=== PATIENT | male | born 1940 | race Caucasian/White ===

== ENCOUNTER → 2023-05-04 09:20 | Outpatient (REF) | payer MEDICARE, SELFPAY ==
[2023-05-04 10:18] LABS: Blood Urea Nitrogen 22 mg/dl (9-20); Calcium 8.8 mg/dl (8.4-10.2); Carbon Dioxide 27 mmol/L (22-30); Chloride 102 mmol/L (98-107); Glucose 189 mg/dl (70-99); Potassium 4.1 mmol/L (3.5-5.1); Sodium 135 mmol/L (135-145); eGFR > 60.00
[2023-05-04 10:35] LABS: Free T4 1.12 ng/dl (0.78-2.19)
[2023-05-04 10:48] LABS: TSH 4.02 uIU/ml (0.47-4.68)
== END ==
LOC: OLABN 09:20
PROVIDERS: ATTENDING PHYSICIAN Internal Medicine Geriatric Medicine
DX: E11.42 Type 2 diabetes mellitus with diabetic polyneuropathy (principal); E03.9 Hypothyroidism, unspecified; E55.9 Vitamin D deficiency, unspecified
CPT/HCPCS: 36415; 80048; 84439; 84443

== ENCOUNTER → 2023-08-03 12:07 | Outpatient (REF) | payer MEDICARE, SELFPAY ==
[2023-08-03 13:33] LABS: Blood Urea Nitrogen 30 mg/dl (9-20); Calcium 9.4 mg/dl (8.4-10.2); Carbon Dioxide 23 mmol/L (22-30); Chloride 105 mmol/L (98-107); Glucose 184 mg/dl (70-99); Potassium 4.8 mmol/L (3.5-5.1); Sodium 137 mmol/L (135-145); eGFR > 60.00
[2023-08-03 13:40] LABS: Vitamin D, 25-OH*** 30.1 ng/mL (30-80)
[2023-08-03 14:40] LABS: Glycohemoglobin (HgbA1c) 8.6 % (4.0-5.6)
== END ==
LOC: OLABN 12:07
PROVIDERS: ATTENDING PHYSICIAN Internal Medicine Geriatric Medicine
DX: E11.42 Type 2 diabetes mellitus with diabetic polyneuropathy (principal); E55.9 Vitamin D deficiency, unspecified
CPT/HCPCS: 36415; 80048; 82306; 83036

== ENCOUNTER → 2023-10-29 08:58 | Outpatient (REF) | payer MEDICARE, OTHER, SELFPAY | LOC: RST 08:58 | PROVIDERS: ATTENDING PHYSICIAN Nurse Practitioner Adult Health; FAMILY PHYSICIAN Internal Medicine Geriatric Medicine | DX: R13.10 Dysphagia, unspecified (principal) | CPT/HCPCS: 74230; 92611 ==

== ENCOUNTER → 2023-11-02 11:18 | Outpatient (REF) | payer MEDICARE, OTHER, SELFPAY ==
[2023-11-02 12:11] LABS: Blood Urea Nitrogen 31 mg/dl (9-20); Calcium 9.2 mg/dl (8.4-10.2); Carbon Dioxide 26 mmol/L (22-30); Chloride 99 mmol/L (98-107); Glucose 198 mg/dl (70-99); Potassium 4.6 mmol/L (3.5-5.1); Sodium 135 mmol/L (135-145); eGFR 49.87
[2023-11-02 12:29] LABS: Free T4 0.96 ng/dl (0.78-2.19)
[2023-11-02 12:43] LABS: TSH 7.07 uIU/ml (0.47-4.68)
[2023-11-02 16:06] LABS: Glycohemoglobin (HgbA1c) 8.1 % (4.0-5.6)
== END ==
LOC: OLABN 11:18
PROVIDERS: ATTENDING PHYSICIAN Internal Medicine Geriatric Medicine
DX: E11.42 Type 2 diabetes mellitus with diabetic polyneuropathy (principal); E03.9 Hypothyroidism, unspecified
CPT/HCPCS: 80048; 83036; 84439; 84443

== ENCOUNTER → 2023-11-05 09:58 | Outpatient (REF) | payer MEDICARE, OTHER, SELFPAY ==
[2023-11-05 12:40] LABS: Free T4 1.02 ng/dl (0.78-2.19)
[2023-11-05 12:54] LABS: TSH 9.74 uIU/ml (0.47-4.68)
== END ==
LOC: OLABN 09:58
PROVIDERS: ATTENDING PHYSICIAN Internal Medicine Geriatric Medicine
DX: E03.9 Hypothyroidism, unspecified (principal)
CPT/HCPCS: 36415; 84439; 84443

== ENCOUNTER → 2024-02-01 11:08 | Outpatient (REF) | payer MEDICARE, OTHER, SELFPAY ==
[2024-02-01 12:55] LABS: Blood Urea Nitrogen 28 mg/dl (9-20); Calcium 9.2 mg/dl (8.4-10.2); Carbon Dioxide 30 mmol/L (22-30); Chloride 97 mmol/L (98-107); Glucose 240 mg/dl (70-99); Potassium 4.8 mmol/L (3.5-5.1); Sodium 138 mmol/L (135-145); eGFR 49.87
[2024-02-01 13:15] LABS: Free T4 1.26 ng/dl (0.78-2.19)
[2024-02-01 13:28] LABS: TSH 6.04 uIU/ml (0.47-4.68)
[2024-02-01 14:38] LABS: Glycohemoglobin (HgbA1c) 8.9 % (4.0-5.6)
== END ==
LOC: OLABN 11:08
PROVIDERS: ATTENDING PHYSICIAN Internal Medicine Geriatric Medicine
DX: E03.9 Hypothyroidism, unspecified (principal); E11.9 Type 2 diabetes mellitus without complications
CPT/HCPCS: 36415; 80048; 83036; 84439; 84443

== ENCOUNTER → 2024-02-10 15:12 | Outpatient (REF) | payer MEDICARE, OTHER, SELFPAY ==
[2024-02-10 19:20] LABS: Urine Albumin 1+ (Neg - Trace); Urine Bilirubin Negative (Negative); Urine Character Clear (Clear); Urine Color Yellow; Urine Glucose Trace (Negative); Urine Ketone Negative (Negative); Urine Leukocyte Trace (Negative); Urine Nitrite Negative (Negative); Urine Occult Blood Trace (Negative); Urine Urobilinogen Negative (Neg - 1+)
[2024-02-10 19:26] LABS: Urine Red Blood Cell 0-2 /HPF (0-2)
[2024-02-10 19:27] LABS: Urine Bacteria Few (Negative); Urine White Cell 70-80 /HPF (0-5)
== END ==
LOC: OLABN 15:12
PROVIDERS: ATTENDING PHYSICIAN Internal Medicine Geriatric Medicine
DX: R82.90 Unspecified abnormal findings in urine (principal)
CPT/HCPCS: 81003; 81015; 87077; 87086

== ENCOUNTER → 2024-03-17 10:17 | Outpatient (REF) | payer MEDICARE, OTHER, SELFPAY ==
[2024-03-17 11:56] LABS: Free T4 1.17 ng/dl (0.78-2.19)
[2024-03-17 12:09] LABS: TSH 7.85 uIU/ml (0.47-4.68)
== END ==
LOC: OLABN 10:17
PROVIDERS: ATTENDING PHYSICIAN Internal Medicine Geriatric Medicine
DX: E03.9 Hypothyroidism, unspecified (principal)
CPT/HCPCS: 36415; 84439; 84443

== ENCOUNTER → 2024-03-26 07:34 | Outpatient (REF) | payer MEDICARE, OTHER, SELFPAY | LOC: RAD 07:34 | PROVIDERS: ATTENDING PHYSICIAN Surgery Vascular Surgery; FAMILY PHYSICIAN Internal Medicine Geriatric Medicine | DX: R60.0 Localized edema (principal) | CPT/HCPCS: 93922; 93925 ==

== ENCOUNTER → 2024-05-02 09:40 | Outpatient (REF) | payer MEDICARE, OTHER, SELFPAY ==
[2024-05-02 10:44] LABS: ALT (SGPT) 17 U/L (0-50); AST (SGOT) 19 U/L (17-59); Alkaline Phosphatase 136 U/L (38-126); Blood Urea Nitrogen 28 mg/dl (9-20); Calcium 9.2 mg/dl (8.4-10.2); Carbon Dioxide 28 mmol/L (22-30); Chloride 98 mmol/L (98-107); Direct Bilirubin 0.3 mg/dl (0.0-0.4); Glucose 176 mg/dl (70-99); HDL Cholesterol 36 mg/dl; LDL Cholesterol, Calculated 98 mg/dl; Potassium 4.4 mmol/L (3.5-5.1); Sodium 136 mmol/L (135-145); Total Bilirubin 0.7 mg/dl (0.2-1.3); Total Cholesterol 183 mg/dl (50-199); Triglyceride 247 mg/dl (10-149); Very Low Density Lipoprotein 49 mg/dl (0-30); eGFR 49.56
[2024-05-02 10:58] LABS: Vitamin D, 25-OH*** 29.6 ng/mL (30-80)
[2024-05-03 09:22] LABS: Glycohemoglobin (HgbA1c) 9.4 % (4.0-5.6)
== END ==
LOC: OLABN 09:40
PROVIDERS: ATTENDING PHYSICIAN Internal Medicine Geriatric Medicine
DX: E78.5 Hyperlipidemia, unspecified (principal); E03.9 Hypothyroidism, unspecified; E55.9 Vitamin D deficiency, unspecified; E11.9 Type 2 diabetes mellitus without complications
CPT/HCPCS: 36415; 80053; 80061; 82248; 82306; 83036

== ENCOUNTER → 2024-06-15 10:10 | Outpatient (REF) | payer MEDICARE, OTHER, SELFPAY ==
[2024-06-15 11:43] LABS: Free T4 1.31 ng/dl (0.78-2.19)
[2024-06-15 11:57] LABS: TSH 6.21 uIU/ml (0.47-4.68)
== END ==
LOC: OLABN 10:10
PROVIDERS: ATTENDING PHYSICIAN Internal Medicine Geriatric Medicine
DX: E03.9 Hypothyroidism, unspecified (principal)
CPT/HCPCS: 36415; 84439; 84443

== ENCOUNTER → 2024-08-01 09:58 | Outpatient (REF) | payer MEDICARE, OTHER, SELFPAY ==
[2024-08-01 10:45] LABS: Blood Urea Nitrogen 34 mg/dl (9-20); Calcium 8.9 mg/dl (8.4-10.2); Carbon Dioxide 25 mmol/L (22-30); Chloride 107 mmol/L (98-107); Glucose 193 mg/dl (70-99); Potassium 4.8 mmol/L (3.5-5.1); Sodium 139 mmol/L (135-145); eGFR 45.62
[2024-08-01 12:11] LABS: Glycohemoglobin (HgbA1c) 7.2 % (4.0-5.6)
== END ==
LOC: OLABN 09:58
PROVIDERS: ATTENDING PHYSICIAN Internal Medicine Geriatric Medicine
DX: E11.42 Type 2 diabetes mellitus with diabetic polyneuropathy (principal)
CPT/HCPCS: 36415; 80048; 83036

== ENCOUNTER → 2024-09-07 09:42 | Outpatient (REF) | payer MEDICARE, OTHER, SELFPAY ==
[2024-09-07 11:09] LABS: Free T4 1.48 ng/dl (0.78-2.19); Vitamin D, 25-OH*** 35.1 ng/mL (30-80)
[2024-09-07 11:22] LABS: TSH 5.51 uIU/ml (0.47-4.68)
== END ==
LOC: OLABN 09:42
PROVIDERS: ATTENDING PHYSICIAN Internal Medicine Geriatric Medicine
DX: E03.9 Hypothyroidism, unspecified (principal); E55.9 Vitamin D deficiency, unspecified
CPT/HCPCS: 36415; 82306; 84439; 84443

== ENCOUNTER → 2024-10-21 11:31 | Outpatient (REF) | payer MEDICARE, OTHER, SELFPAY ==
[2024-10-21 13:48] LABS: Hematocrit 35.9 % (39.0-52.0); Hemoglobin 12.1 g/dL (13.0-18.0); Mean Corp Hgb Conc. 33.7 g/dL (33.0-37.0); Mean Corpuscular Volume 91.6 fL (80.0-94.0); Nucleated Red Blood Cells % 0 % (-); Platelet Count 152 10^3/uL (130-400); Red Cell Dist. Width 14.4 % (11.5-14.5)
[2024-10-21 14:18] LABS: Urine Character Slightly Cloudy (Clear)
[2024-10-21 14:50] LABS: Urine Red Blood Cell 0-2 /HPF (0-2); Urine Squamous Cell 0-2 /LPF (Few); Urine White Cell 0-2 /HPF (0-5)
[2024-10-21 16:09] LABS: ALT (SGPT) 18 U/L (0-50); AST (SGOT) 29 U/L (17-59); Albumin 3.4 g/dl (3.5-5.0); Alkaline Phosphatase 87 U/L (38-126); Blood Urea Nitrogen 24 mg/dl (9-20); Calcium 8.8 mg/dl (8.4-10.2); Carbon Dioxide 26 mmol/L (22-30); Chloride 104 mmol/L (98-107); Glucose 140 mg/dl (70-99); Potassium 4.0 mmol/L (3.5-5.1); Sodium 135 mmol/L (135-145); Total Protein 6.5 g/dl (6.3-8.2); eGFR 54.17
== END ==
LOC: OLABN 11:31
PROVIDERS: ATTENDING PHYSICIAN Internal Medicine Geriatric Medicine
DX: M62.81 Muscle weakness (generalized) (principal); N40.1 Benign prostatic hyperplasia with lower urinary tract symptoms
CPT/HCPCS: 36415; 80053; 81003; 81015; 85025; 87086

== ENCOUNTER → 2024-10-31 10:05 | Outpatient (REF) | payer MEDICARE, OTHER, SELFPAY ==
[2024-10-31 11:21] LABS: Blood Urea Nitrogen 26 mg/dl (9-20); Calcium 8.8 mg/dl (8.4-10.2); Carbon Dioxide 26 mmol/L (22-30); Chloride 105 mmol/L (98-107); Glucose 109 mg/dl (70-99); Potassium 4.5 mmol/L (3.5-5.1); Sodium 136 mmol/L (135-145); eGFR 59.63
[2024-10-31 13:14] LABS: Glycohemoglobin (HgbA1c) 7.2 % (4.0-5.6)
== END ==
LOC: OLABN 10:05
PROVIDERS: ATTENDING PHYSICIAN Internal Medicine Geriatric Medicine
DX: E11.42 Type 2 diabetes mellitus with diabetic polyneuropathy (principal)
CPT/HCPCS: 36415; 80048; 83036

== ENCOUNTER → 2024-12-07 09:24 | Outpatient (REF) | payer MEDICARE, OTHER, SELFPAY ==
[2024-12-07 11:15] LABS: TSH 6.98 uIU/ml (0.47-4.68)
== END ==
LOC: OLABN 09:24
PROVIDERS: ATTENDING PHYSICIAN Internal Medicine Geriatric Medicine
DX: E03.9 Hypothyroidism, unspecified (principal)
CPT/HCPCS: 36415; 84439; 84443

== ENCOUNTER → 2025-01-04 10:42 | Outpatient (REF) | payer MEDICARE, OTHER, SELFPAY ==
[2025-01-04 11:47] LABS: TSH 4.53 uIU/ml (0.47-4.68)
== END ==
LOC: OLABN 10:42
PROVIDERS: ATTENDING PHYSICIAN Internal Medicine Geriatric Medicine
DX: E03.9 Hypothyroidism, unspecified (principal)
CPT/HCPCS: 36415; 84439; 84443

== ENCOUNTER → 2025-02-27 11:33 | Outpatient (REF) | payer MEDICARE, OTHER, SELFPAY ==
[2025-02-27 12:26] LABS: Blood Urea Nitrogen 31 mg/dl (9-20); Calcium 8.7 mg/dl (8.4-10.2); Carbon Dioxide 25 mmol/L (22-30); Chloride 99 mmol/L (98-107); Glucose 185 mg/dl (70-99); Potassium 4.6 mmol/L (3.5-5.1); Sodium 133 mmol/L (135-145); eGFR 49.25
[2025-02-27 14:38] LABS: Glycohemoglobin (HgbA1c) 7.1 % (4.0-5.9)
== END ==
LOC: OLABN 11:33
PROVIDERS: ATTENDING PHYSICIAN Internal Medicine Geriatric Medicine
DX: E11.42 Type 2 diabetes mellitus with diabetic polyneuropathy (principal)
CPT/HCPCS: 36415; 80048; 83036